=== PATIENT | male | born 1985 | race Caucasian/White ===

== ENCOUNTER 2016-05-30 12:12 | Emergency (ER) | payer SELFPAY ==
--- NOTE | 2016-05-30 14:03 | UCPHY ---
H & P Time Seen by Provider: 05/30/16 13:17 Patient Type: Established HPI/ROS: Chief complaint: cough and fever for 5 days HPI: previously healthy 30 year male ill with cough and fever for now 5 days. First couple days was mostly that of a URI with nasal congestion but no sinus pain per then last 3 days of cough him on worse it is now so bad this keeping awake and he has some straining the musculature of the left paracervical area. Denies any shaking chills or rigors He does note he has had diffuse muscle aches and myalgias to a mild degree ROS: Constitutional - see above Eyes - no discharge, or injection ENT - no earache, change in hearing, difficulty swallowing, but he does have a mild sore throat. Respiratory - No Shortness of breath, phlegm, wheezing or pleuritic chest pain. The cough is dry Musculoskeletal - some mild musculoskeletal pain Integument - no rashes. Neurological - see above Immunological - no swelling or lymphadenopathy Smoking Status: Never smoked Physical Exam: Gen: Well developed, well nourished. Nontoxic. HEENT: Normocephalic. Ears: TMs are clear. Hearing normal. Eyes: PERRL. No conjunctival injection or pallor. no jaundice. Nose: No nasal discharge. Sinuses are nontender. Throat: Membranes are moist. Oropharynx is without erythema or exudate. Normal phonation. Lungs: Good air entry into both lungs. Rales present left base.. No air hunger. No respiratory distress. Skin: Good color, without pallor. There is no diaphoresis. Skin is warm and dry , without diaphoresis. Intact without rashes Constitutional: Initial Vital Signs Temperature (C) 37.1 C 05/30/16 12:16 Heart Rate 98 05/30/16 12:16 Respiratory Rate 19 05/30/16 12:16 Blood Pressure 130/86 H 05/30/16 12:16 O2 Sat (%) 95 05/30/16 12:16 O2 Delivery Mode Room Air Allergies/Adverse Reactions: No Known Allergies Allergy (Verified 05/30/16 12:38) Home Medications: Medication Instructions Recorded Azithromycin [Zithromax] 250 mg PO DAILY #6 tab 05/30/16 Benzonatate 200 mg PO TID PRN #28 capsule 05/30/16 Zolpidem Tartrate [Ambien 10 mg] 10 mg PO DAILY #7 tablet 05/30/16 traZODone [traZODONE 100MG (*)] 05/30/16 Medical Decision Making ED Course/Re-evaluation: He specifically requested something to help him sleep on top of the cough suppressant. I cautioned him regarding medications such as this but he only wanted for day or 2. Thus I did check the: [place] Prescription Drug Monitoring Program checked: no activity in last year Differential Diagnosis: Diagnostic considerations include, but are not limited to, the following: URI, sinusitis, pharyngitis, otitis media, pneumonia, allergy. - Data Points Laboratory Results: 05/30/16 13:10 Influenza Typ A,B (DFA) NEGATIVE FOR FLU (NEGATIVE) Departure - Departure Disposition: Home, Routine, Self-Care Clinical Impression: Pneumonia Qualifiers: Pneumonia type: due to unspecified organism Laterality: left Lung location: lower lobe of lung Qualified Code(s): J18.1 - Lobar pneumonia, unspecified organism Condition: Good Instructions: Bacterial Pneumonia (ED) Additional Instructions: Home to rest No work Take Delsym [id number] for tsp twice daily or benzonatate, not both Recheck PCP 4 days if not all better, sooner if getting worse Referrals: NONE *PRIMARY CARE P,. [Primary Care Provider] - As per Instructions Prescriptions: Azithromycin [Zithromax] 250 mg PO DAILY #6 tab Benzonatate 200 mg PO TID PRN #28 capsule PRN Reason: Cough, Moderate Zolpidem Tartrate [Ambien 10 mg] 10 mg PO DAILY #7 tablet - PQRS PQRS Measurement: NA
[2016-05-30 14:31] VITALS: BP 116/74; PULSE 90; RESP 18; TEMP 99; O2SAT 96
== END 2016-05-30 14:31 | disposition home or self-care (01) ==
LOC: CED 12:12
DX: J18.1 Lobar pneumonia, unspecified organism (principal)
CPT/HCPCS: 87400-PO; 99214-PO; G0463-PO

== ENCOUNTER 2016-06-22 19:21 | Emergency (ER) | payer MEDICAID ==
[2016-06-22 19:37] VITALS: BP 128/86; PULSE 78; RESP 18; TEMP 97.7; O2SAT 98
--- NOTE | 2016-06-22 19:56 | UCPHY ---
H & P Patient Type: Established HPI/ROS: CHIEF COMPLAINT: Sore throat, eye irritation. HISTORY OF PRESENT ILLNESS: The patient is a 30-year-old male who presents with sore throat and eye irritation for the past few days. He admits associated cervical adenopathy and shortness of breath. He believes these symptoms are from seasonal allergies, though has run out of his LOTOMAX. Nor has he started any ijys-joy-qsmiuxs Flonase or Zyrtec. He has always lived in this area. He typically has allergies this time here. He denies recent sick contact or chemical inhalation. He denies fever, chills, vomiting, abdominal pain, diarrhea, or other complaints. He has been using Lotemax for his eye irritation, but ran out REVIEW OF SYSTEMS: Constitutional: No fever, no chills. Eyes: No diplopia. ENT: As above. Mild sore throat Cardiovascular: No chest pain, no palpitations. Respiratory: No cough, no shortness of breath, no wheezing. Gastrointestinal: No nausea vomiting or diarrhea. No abdominal pain. Skin: No rashes. Neurological: No headache. Past Medical/Surgical History: Denies. Social History: Nonsmoker. Smoking Status: Never smoked Physical Exam: General Appearance: Alert, no distress. Afebrile. Normal phonation. No respiratory distress. Eyes: Pupils equal and round no pallor or injection. No icterus ENT, Mouth: Mucous membranes moist. Pharynx slightly erythematous and without exudate. No tonsillar swelling. TM Clear. Neck: No adenopathy. Supple. No JVD. Trachea in midline. Respiratory: There are no retractions. Expiratory wheezing Only noted with forced exhalation Cardiovascular: Regular rate and rhythm, no murmurs Skin: Warm and dry, no rashes. Psychiatric: Patient is oriented X 3, there is no agitation. He denies substance abuse. Constitutional: Initial Vital Signs Temperature (C) 36.5 C 06/22/16 19:33 Heart Rate 78 06/22/16 19:33 Respiratory Rate 18 06/22/16 19:33 Blood Pressure 128/86 H 06/22/16 19:33 O2 Sat (%) 98 06/22/16 19:33 O2 Delivery Mode Room Air Allergies/Adverse Reactions: No Known Allergies Allergy (Verified 05/30/16 12:38) Home Medications: Medication Instructions Recorded Azithromycin [Zithromax] 250 mg PO DAILY #6 tab 05/30/16 Benzonatate 200 mg PO TID PRN #28 capsule 05/30/16 Zolpidem Tartrate [Ambien 10 mg] 10 mg PO DAILY #7 tablet 05/30/16 traZODone [traZODONE 100MG (*)] 05/30/16 Albuterol [Proventil Inhaler HFA 2 puffs IH Q4H PRN #1 mdi 06/22/16 (*)] Zolpidem Tartrate [Ambien 10 mg] 10 mg PO HS #2 tablet 06/22/16 Medical Decision Making ED Course/Re-evaluation: 30-year-old male presents with sore throat, eye irritation, and rhinorrhea for the past few days. These symptoms have been causing him shortness of breath at night and he feels that they are from his seasonal allergies. On exam his throat is erythematous without swelling. I believe this represents allergic rhinitis. He understands to use over the counter Flonase and Zyrtec. I will write him a prescription for an inhaler, though, as he has a steroid drop that would be the purview of his PCP. I did check the [place] drug monitoring program and his only injury was from that of 3 weeks ago when a was seen at the time here I have requested Imodium for me at the time thus I will give him a dose for 2 days tablets. Use of [facility] PCP but tells me that his PCP head switch his appointment as a was no longer taking his insurance, Medicaid. Differential Diagnosis: Diagnostic considerations include, but are not limited to, the following: Allergic conjunctivitis, allergic rhinitis, chemical conjunctivitis, viral conjunctivitis, bacterial conjunctivitis. URI. Departure - Departure Disposition: Home, Routine, Self-Care Clinical Impression: Allergic rhinitis Qualifiers: Allergic rhinitis trigger: unspecified Allergic rhinitis seasonality: seasonal Qualified Code(s): J30.2 - Other seasonal allergic rhinitis Condition: Good Instructions: Allergic Rhinitis (ED) Additional Instructions: Use [id number]-[id number]-[id number] Flonase and Zyrtec as instructed. Use the Proventil inhaler as instructed for wheezing and shortness of breath. Use it an hour before you are planning on going to bed. The LOTEMAX is a steroid eye drop we are not allowed to prescribe. Follow up with your primary care provider as scheduled and discussed. If you need a primary care provider you have been given the telephone number of Dr. Marcano, outpatient medicine. Return to the emergency department for any serious worsening of condition. Referrals: Hong Marcano MD [Medical Doctor] - As per Instructions Prescriptions: Albuterol [Proventil Inhaler HFA (*)] 2 puffs IH Q4H PRN #1 mdi PRN Reason: wheezing, difficulty breathing Zolpidem Tartrate [Ambien 10 mg] 10 mg PO HS #2 tablet - PQRS PQRS Measurement: N/A. Report Scribed for: José Carroll Report Scribed by: Andrea Guerra Date of Report: 06/22/16 Time of Report: 19:33
== END 2016-06-22 20:30 | disposition home or self-care (01) ==
LOC: CED 19:21
DX: J30.2 Other seasonal allergic rhinitis (principal)
CPT/HCPCS: G0463-PO

== ENCOUNTER 2016-08-12 20:48 | Emergency (ER) | payer MEDICAID ==
[2016-08-12 21:15] VITALS: BP 134/103; PULSE 70; RESP 16; TEMP 98.1; O2SAT 98
--- NOTE | 2016-08-12 21:22 | EDPHY ---
H & P Time Seen by Provider: 08/12/16 21:15 HPI/ROS: Chief complaint. Back pain HPI. 30-year-old male has been moving furniture today and then bent over and felt stiffness and tightness from his neck to his low back. Somewhat worse on the left. It hurts to twist and move. There was no fall or injury. Occasional history of back pain. He has no leg symptoms in turns of weakness or radiation to his legs. No bowel or bladder symptoms. He has use Tylenol and ibuprofen with inadequate relief. ROS Constitutional. no fever/chills, no weakness Eyes. no problems with vision ENT. no sore throat, no nasal drainage Cardiovascular. no chest pain Respiratory. no shortness of breath, no cough Abdominal. no abdominal pain, no nausea/vomiting, no diarrhea . no problems urinating MS. Back pain Skin. no rash Lymph. no swollen glands Neuro. no headache, no dizziness, no difficulty walking or with speech Past Medical/Surgical History: Denies past medical history Social History: Single, nonsmoker, no alcohol Smoking Status: Never smoked Physical Exam: General Appearance: Alert well-developed male mild distress vital signs are stable Eyes: Pupils equal and round no pallor or injection. ENT, Mouth: Mucous membranes are moist. Respiratory: There are no retractions, lungs are clear to auscultation. Cardiovascular: Regular rate and rhythm. Gastrointestinal: Abdomen is soft and nontender, no masses, bowel sounds normal. Neurological: Awake and alert, sensory and motor exams grossly normal. Skin: Warm and dry, no rashes. Musculoskeletal: Neck is supple nontender. Diffuse muscle spasm especially to the medial scapular areas bilaterally. Somewhat worse on the left medial scapula area. No spine tenderness. Distal motor vascular sensitivity is intact Extremities symmetrical, full range of motion. Psychiatric: Patient is oriented X 3, there is no agitation. Constitutional: Initial Vital Signs Temperature (C) 36.7 C 08/12/16 21:12 Heart Rate 70 08/12/16 21:12 Respiratory Rate 16 08/12/16 21:12 Blood Pressure 134/103 H 08/12/16 21:12 O2 Sat (%) 98 08/12/16 21:12 O2 Delivery Mode Room Air Allergies/Adverse Reactions: No Known Allergies Allergy (Verified 08/12/16 21:15) Home Medications: Medication Instructions Recorded CYCLOBENZAPRINE HCL [Flexeril] 5 mg PO TIDPRN PRN #10 tab 08/12/16 Cyclobenzaprine 10Mg Prepack#3 1 btl TAKEHOME EDNOW #0 btl 08/12/16 [Flexeril 10 mg Prepack#3] Medical Decision Making ED Course/Re-evaluation: Patient remained stable. He and I discussed treatment plan including criteria for return importance of follow-up further evaluation. He expresses understanding and agreement Differential Diagnosis: This appears to be muscle spasm. I considered trauma, cauda equina syndrome, herniated disc Departure - Departure Disposition: Home, Routine, Self-Care Clinical Impression: Back pain Qualifiers: Back pain location: thoracic back pain Chronicity: acute Back pain laterality: bilateral Qualified Code(s): M54.6 - Pain in thoracic spine Condition: Good Instructions: Back Pain (ED) Additional Instructions: Ice to sore area every back next 24 hours. Ibuprofen 800 mg every 6 hours as needed for discomfort. Flexeril as muscle relaxer. Return for worsening symptoms. Recheck with your regular physician in 2-3 days if not improving Referrals: NONE *PRIMARY CARE P,. [Primary Care Provider] - As per Instructions Prescriptions: Cyclobenzaprine 10Mg Prepack#3 [Flexeril 10 mg Prepack#3] 1 btl TAKEHOME EDNOW # 0 btl CYCLOBENZAPRINE HCL [Flexeril] 5 mg PO TIDPRN PRN #10 tab PRN Reason: Spasms
[2016-08-12] MEDS ORDERED: CYCLOBENZAPRINE 10MG PREPACK#3 BTL TAKEHOME ONE (21:37)
== END 2016-08-12 21:45 | disposition home or self-care (01) ==
LOC: CED 20:48
DX: M54.6 Pain in thoracic spine (principal)

== ENCOUNTER 2016-11-01 21:00 | Emergency (ER) | payer MEDICAID ==
[2016-11-01 21:14] VITALS: BP 129/90; PULSE 112; RESP 16; TEMP 97.5; O2SAT 96
[2016-11-01] MEDS ORDERED: ZOLPIDEM TARTRATE 5 MG TAB PO ONE ×2 (21:26→21:29)
--- NOTE | 2016-11-01 21:29 | EDPHY ---
H & P Stated Complaint: Pt. states rx for ambien ran out 2 nocs ago has appt next Th pcp Time Seen by Provider: 11/01/16 21:08 HPI/ROS: Chief Complaint: Insomnia HPI: 31-year-old male with a history of intermittent insomnia. He has been prescribed Ambien in the past, states his last prescribed it in July is given 14 feels that time. He states that he will take half a pill maybe once or twice a week. He ran out about a week ago. He has an appointment with primary care physician in a week but has not been able sleep for the last 2 nights. He says that he is having some chronic jaw pain which is contributing to this. He is currently under the care of a dentist for this. Denies any fevers or chills. No depression. He is here requesting just 1-2 tablets that might help him get through the weekend until he gets his primary care physician. Denies any alcohol or drug use. No fevers or chills. No nausea or vomiting. No chest pain or shortness of breath. ROS: 10 point Review of Systems is negative except as noted in the HPI. PMH: 69 a, back pain, seasonal allergies Social History: No smoking, no alcohol, no recreational drug use Family History: non-contributory Physical Exam: Gen: Awake, Alert, No Distress HEENT: Nose: no rhinorrhea Eyes: PERRLA, EOMI Mouth: Moist mucosa Neck: Supple, no JVD Chest: nontender, lungs clear to auscultation Heart: S1, S2 normal, no murmur Abd: Soft, non-tender, no guarding Back: no CVA tenderness, no midline tenderness Ext: no edema, non-tender Skin: no rash Neuro: CN II-XII intact, Sensation grossly intact, Strength 5/5 in bilateral upper and lower extremities - Personal History Tetanus Vaccine Date: 2012 - Medical/Surgical History Hx Asthma: No Hx Chronic Respiratory Disease: No Hx Diabetes: No Hx Cardiac Disease: No Hx Renal Disease: No Hx Cirrhosis: No Hx Alcoholism: No Hx HIV/AIDS: No Hx Splenectomy or Spleen Trauma: No Other PMH: Med hx-insomnia,chronic pain. Surg-wisdom teeth - Social History Smoking Status: Never smoked Constitutional: Initial Vital Signs Temperature (C) 36.4 C 11/01/16 21:10 Heart Rate 112 H 11/01/16 21:10 Respiratory Rate 16 11/01/16 21:10 Blood Pressure 129/90 H 11/01/16 21:10 O2 Sat (%) 96 11/01/16 21:10 O2 Delivery Mode Room Air Allergies/Adverse Reactions: No Known Allergies Allergy (Verified 11/01/16 21:07) Home Medications: Medication Instructions Recorded Ambien 11/01/16 Flexeril 11/01/16 Montelukast Sodium 11/01/16 Zolpidem Tartrate 11/01/16 Medical Decision Making ED Course/Re-evaluation: Patient is here requesting Ambien to help him sleep. He is only requesting 1-2 tablets to help with the weekend. I have not seen any evidence of significant other drug-seeking behavior. I have told him that I will not give a prescription was sent home with a couple tablets. He is happy with this. He will follow up with primary care physician next week as scheduled. Departure - Departure Disposition: Home, Routine, Self-Care Clinical Impression: Insomnia Condition: Good Instructions: Insomnia (ED) Additional Instructions: Follow up with primary care physician as scheduled next week for further management of your insomnia. Referrals: Henny Vasquez, DO [Primary Care Provider] - As per Instructions
== END 2016-11-01 21:34 | disposition home or self-care (01) ==
LOC: CED 21:00
DX: G47.00 Insomnia, unspecified (principal)